=== PATIENT | male | born 1945 | race Caucasian/White ===

== ENCOUNTER 2016-07-08 10:07 | Inpatient (IN) | payer MEDICARE, MEDICAID ==
[~2016-07-08] VITALS: Ht 170.2 cm; Wt 84.9 kg
[~2016-07-08 10:07] MED LIST: ALBU18HF IH; AMLO5TAB4 PO; AZIT500T77 PO; CEPH-368 PO; CLON0.1T PO; CLON0.1T12 PO; DOXY100T PO; FOLI-17 PO; GUAI5SYR PO; GUAI600T22 PO; IRBE1TAB13 PO; LEVO750T26 PO; LORA-445 PO; LORA-446 PO; METO25TA35 PO; MULT-26 PO; MULT-750 PO; PRED10TA PO; RISP0.5T18 PO; THIA100T6 PO; TRAZ50TA18 PO
[2016-07-08] MEDS ORDERED: SODIUM CHLORIDE 0.9% 1,000ML IVBOLUS ONE ×2 (11:00→12:30)
[2016-07-08] MEDS ORDERED: SODIUM CHLORIDE FLUSH 10ML SYR IVF ONE (11:00)
[2016-07-08 11:15] LABS: BLOOD UREA NITROGEN 31 mg/dL (7-18)
[2016-07-08 11:23] LABS: IS PT STATUS REG ER OR PRE ER? YES
[2016-07-08] MEDS ORDERED: SODIUM CHLORIDE 0.9% 1,000 ML IV STA (12:35)
[2016-07-08] MEDS ORDERED: AMLO10TA2 PO (12:36)
[2016-07-08] MEDS ORDERED: BUME0.5T PO (12:36)
[2016-07-08] MEDS ORDERED: CARV-39 PO (12:36)
[2016-07-08] MEDS ORDERED: SPIR25TA3 PO (12:36)
[2016-07-08] MEDS ORDERED: ALLO300T PO (12:36)
[2016-07-08] MEDS ORDERED: SODIUM CHLORIDE 0.9% 1,000 ML IV ONE (12:41)
[2016-07-08] MEDS ORDERED: OMNIPAQUE 350 MG/ML, 100ML BOTTLE ONE (13:33)
[2016-07-08] MEDS ORDERED: D5%-0.45% NACL 1,000 ML IV ONE (14:06)
[2016-07-08] MEDS ORDERED: SODIUM CHLORIDE FLUSH 10ML SYR IVF PRN (14:30)
[2016-07-08] MEDS ORDERED: ACETAMINOPHEN 325 MG TABLET PO PRN (16:30)
[2016-07-08] MEDS ORDERED: OXYcodone IR 5MG TABLET PO PRN (16:30)
[2016-07-08] MEDS ORDERED: POLYETHYLENE GLYCOL 17 GM PACKET PO PRN (16:30)
[2016-07-08] MEDS ORDERED: ONDANSETRON ODT 4 MG PO PRN (16:30)
[2016-07-08] MEDS: NS + 20MEQ KCL 1,000 ML IV SCH (18:24)
[2016-07-08] MEDS: CARVEDILOL 25 MG TABLET PO SCH (18:24)
[2016-07-08 18:27] VITALS: BP 117/81
[2016-07-08 18:55] VITALS: BP 98/59
[2016-07-08] MEDS: LACTULOSE 10 GM/15 ML UDC PO SCH (22:13)
[2016-07-08] MEDS: RISPERIDONE 0.5 MG TABLET PO SCH (22:13)
[2016-07-08 22:17] VITALS: BP 105/72
[2016-07-09 01:24] VITALS: BP 100/64
[2016-07-09] MEDS: NS + 20MEQ KCL 1,000 ML IV SCH ×2 (03:15→16:12)
[2016-07-09 05:06] LABS: BLOOD UREA NITROGEN 23 mg/dL (7-18)
[2016-07-09 05:10] LABS: ASPARTATE AMINO TRANSFERASE 20 U/L (15-37)
[2016-07-09] MEDS: LEVOTHYROXINE 100 MCG TABLET PO SCH (06:08)
[2016-07-09] MEDS: CARVEDILOL 25 MG TABLET PO SCH ×2 (06:08→17:43)
[2016-07-09 06:09] VITALS: BP 114/67
[2016-07-09 07:53] VITALS: BP 102/60
[2016-07-09] MEDS: ALLOPURINOL 300 MG TABLET PO SCH (09:38)
[2016-07-09] MEDS: LACTULOSE 10 GM/15 ML UDC PO SCH ×2 (09:39→20:12)
[2016-07-09] MEDS: BUMETANIDE 1 MG TABLET PO SCH (09:39)
[2016-07-09] MEDS: RISPERIDONE 0.5 MG TABLET PO SCH ×2 (09:39→20:12)
[2016-07-09] MEDS: LORazepam 1MG TABLET PO PRN (10:58)
[2016-07-09 13:56] VITALS: BP 101/61
[2016-07-09] MEDS: CEFTRIAXONE 1,000 MG in DEXTROSE 5% 50 ML IV SCH (14:59)
[2016-07-09 18:19] VITALS: BP 100/63
[2016-07-09] MEDS: TRAZODONE 50MG TABLET PO PRN (20:12)
[2016-07-10] MEDS: NS + 20MEQ KCL 1,000 ML IV SCH (01:48)
[2016-07-10 04:07] VITALS: BP 110/68
[2016-07-10] MEDS: LEVOTHYROXINE 100 MCG TABLET PO SCH (05:37)
[2016-07-10] MEDS: CARVEDILOL 25 MG TABLET PO SCH ×2 (05:37→17:26)
[2016-07-10 07:52] VITALS: BP 105/66
[2016-07-10] MEDS: LORazepam 1MG TABLET PO PRN (08:18)
[2016-07-10] MEDS: LACTULOSE 10 GM/15 ML UDC PO SCH ×3 (08:18→20:04)
[2016-07-10] MEDS: ALLOPURINOL 300 MG TABLET PO SCH (08:19)
[2016-07-10] MEDS: BUMETANIDE 1 MG TABLET PO SCH (08:19)
[2016-07-10] MEDS: RISPERIDONE 0.5 MG TABLET PO SCH ×2 (08:19→20:04)
[2016-07-10 13:05] VITALS: BP 102/64
[2016-07-10] MEDS: CEFTRIAXONE 1,000 MG in DEXTROSE 5% 50 ML IV SCH (14:35)
[2016-07-10] MEDS ORDERED: NS + 20MEQ KCL 1,000 ML IV SCH (16:28)
[2016-07-10 19:54] VITALS: BP 106/63
[2016-07-10] MEDS: TRAZODONE 50MG TABLET PO PRN (20:03)
[2016-07-11 01:18] VITALS: BP 116/71
[2016-07-11] MEDS: LEVOTHYROXINE 100 MCG TABLET PO SCH (05:35)
[2016-07-11] MEDS: CARVEDILOL 25 MG TABLET PO SCH ×2 (05:35→17:41)
[2016-07-11 05:38] LABS: BLOOD UREA NITROGEN 15 mg/dL (7-18)
[2016-07-11 05:42] LABS: ASPARTATE AMINO TRANSFERASE 17 U/L (15-37)
[2016-07-11 07:47] VITALS: BP 101/66
[2016-07-11] MEDS: ALLOPURINOL 300 MG TABLET PO SCH (09:44)
[2016-07-11] MEDS: LACTULOSE 10 GM/15 ML UDC PO SCH ×2 (09:44→20:52)
[2016-07-11] MEDS: RISPERIDONE 0.5 MG TABLET PO SCH ×2 (09:44→20:52)
[2016-07-11] MEDS: CEFTRIAXONE 1,000 MG in DEXTROSE 5% 50 ML IV SCH (13:56)
[2016-07-11 15:00] VITALS: BP 111/71
[2016-07-11] MEDS: LORazepam 1MG TABLET PO PRN (17:47)
[2016-07-11 19:54] VITALS: BP 108/67
[2016-07-12 02:00] VITALS: BP 119/64
[2016-07-12] MEDS: LEVOTHYROXINE 100 MCG TABLET PO SCH (05:23)
[2016-07-12] MEDS: CARVEDILOL 25 MG TABLET PO SCH (05:23)
[2016-07-12 06:33] VITALS: BP 104/66
[2016-07-12] MEDS: LACTULOSE 10 GM/15 ML UDC PO SCH (08:18)
[2016-07-12] MEDS: ALLOPURINOL 300 MG TABLET PO SCH (08:19)
[2016-07-12] MEDS: RISPERIDONE 0.5 MG TABLET PO SCH (08:19)
[2016-07-12] MEDS: LORazepam 1MG TABLET PO PRN (08:19)
[2016-07-12] MEDS ORDERED: RISP0.5T18 PO (11:27)
[2016-07-12] MEDS ORDERED: LEVO100T PO (11:27)
[2016-07-12] MEDS ORDERED: TRAM50TA2 PO (11:27)
[2016-07-12 13:20] VITALS: BP 110/69
[2016-07-12] MEDS: CEFTRIAXONE 1,000 MG in DEXTROSE 5% 50 ML IV SCH (14:00)
== END 2016-07-12 15:30 | disposition home health service (06) | DRG 314 ==
LOC: ED 13:53 → EDIP 13:54 → ED 14:12 → 4WST 17:34
PROVIDERS: ADMIT Internal Medicine; ATTEND Internal Medicine
DX: I95.0 Idiopathic hypotension (principal); J18.9 Pneumonia, unspecified organism; L03.116 Cellulitis of left lower limb; L03.115 Cellulitis of right lower limb; E86.0 Dehydration; I10 Essential (primary) hypertension; E03.9 Hypothyroidism, unspecified; E86.1 Hypovolemia; F10.20 Alcohol dependence, uncomplicated; J43.9 Emphysema, unspecified; F41.9 Anxiety disorder, unspecified; F03.90 Unspecified dementia, unspecified severity, without behavioral disturbance, psychotic disturbance, mood disturbance, and anxiety; I27.2 Other secondary pulmonary hypertension; I27.81 Cor pulmonale (chronic); I89.0 Lymphedema, not elsewhere classified; Z87.891 Personal history of nicotine dependence; I25.2 Old myocardial infarction
CPT/HCPCS: 36415; 71010; 71275; 74150; 74175; 80048; 80053; 81003; 82040; 84484; 85025; 85379; 93005; 93306; 93970; 96361; 96365; 96366; J0696; J3480; Q9967; J7030

== ENCOUNTER 2017-11-01 20:14 | Inpatient (IN) | payer MEDICARE, MEDICAID ==
[~2017-11-01] VITALS: Ht 180.3 cm; Wt 71.2 kg
[~2017-11-01 20:14] MED LIST changes: +ALLO300T PO; +AMLO10TA6 PO; +ASPI-621 PO; +AZIT500T5 PO; -AZIT500T77 PO; +BUME0.5T PO; +CARV-39 PO; -GUAI600T22 PO; +GUAI600T31 PO; +LEVO100T PO; -RISP0.5T18 PO; +RISP0.5T24 PO; +SPIR25TA5 PO; -THIA100T6 PO; +THIA100T67 PO; +TRAM50TA2 PO; +TRAZ-136 PO; -TRAZ50TA18 PO
[2017-11-01] MEDS ORDERED: SODIUM CHLORIDE FLUSH 10ML SYR IVF ONE (21:30)
[2017-11-01 21:41] LABS: BASOPHILS # (AUTO) 0.01 x10^3/uL (0-0.1); BASOPHILS % (AUTO) 0 % (0-1); EOSINOPHILS # (AUTO) 0.23 x10^3/uL (0-0.4); EOSINOPHILS % (AUTO) 2 % (1-7); LYMPHOCYTES # (AUTO) 1.24 x10^3/uL (1-3.4); LYMPHOCYTES % (AUTO) 9 % (22-44); MD NO; MEAN CORPUSCULAR HEMOGLOBIN 32.6 pg (27.5-34.5); MEAN CORPUSCULAR VOLUME 95.8 fL (81-97); MEAN PLATELET VOLUME 11.4 fL (7.4-10.4); MONOCYTES # (AUTO) 1.05 x10^3/uL (0.2-0.8); MONOCYTES % (AUTO) 8 % (2-9); NEUTROPHILS # (AUTO) 10.63 x10^3/uL (1.8-6.8); NEUTROPHILS % (AUTO) 81 % (42-75); PLATELET COUNT 158 x10^3/uL (130-400); RED BLOOD COUNT 3.41 x10^6/uL (4.38-5.82); RED CELL DISTRIBUTION WIDTH 14.3 % (9.4-14.8)
[2017-11-01 21:50] LABS: INTERNATIONAL NORMALIZED RATIO 1.02 (0.93-1.1); PROTHROMBIN TIME 10.6 Seconds (9.6-11.5)
[2017-11-01 21:51] LABS: ALANINE AMINOTRANSFERASE 12 U/L (12-78); ALBUMIN 3.6 g/dL (3.4-5.0); ANION GAP 11 mmol/L (5-15); CHLORIDE 98 mmol/L (98-107); CREATININE 4.68 mg/dL (0.7-1.3)
[2017-11-01 21:56] LABS: ALKALINE PHOSPHATASE 55 U/L (45-117); BILIRUBIN,TOTAL 0.7 mg/dL (0.2-1.0); TOTAL PROTEIN 7.2 g/dL (6.4-8.2); TROPONIN I 0.033 ng/mL (0.000-0.045)
[2017-11-01] MEDS ORDERED: CLOP75TA52 PO (21:56)
[2017-11-01] MEDS ORDERED: SPIR25TA5 PO (21:56)
[2017-11-01 21:57] LABS: MICROSCOPIC NOT IND
[2017-11-01] MEDS ORDERED: LOSA25TA6 PO (21:57)
[2017-11-01 22:00] LABS: CULTURE INDICATED? NO
[2017-11-01] MEDS ORDERED: SODIUM CHLORIDE 0.9% 1,000ML IVBOLUS ONE (22:00)
[2017-11-02] MEDS ORDERED: GLUCAGON 1 MG IVPush ONE
[2017-11-02] MEDS ORDERED: SODIUM CHLORIDE 0.9% 1,000ML IVBOLUS ONE (00:30)
[2017-11-02] MEDS ORDERED: SODIUM CHLORIDE 0.9% 1,000 ML IV ONE (01:50)
[2017-11-02] MEDS ORDERED: NOREPINEPHRINE 4 MG in SODIUM CHLORIDE 0.9% 246 ML IV PRN ×2 (02:00→04:00)
[2017-11-02] MEDS ORDERED: SODIUM CHLORIDE FLUSH 10ML SYR IVF PRN (02:00)
[2017-11-02] MEDS ORDERED: BISACODYL 10 MG SUPP PR PRN (03:30)
[2017-11-02] MEDS ORDERED: ONDANSETRON 2MG/ML, 2ML IVPush PRN (03:30)
[2017-11-02] MEDS ORDERED: ACETAMINOPHEN 325 MG TABLET PO PRN (03:30)
[2017-11-02] MEDS ORDERED: LORazepam 1MG TABLET PO PRN (03:30)
[2017-11-02] MEDS ORDERED: PHARMACY MAY ADJ FOR RENAL FX MC PRN (04:00)
[2017-11-02] MEDS: HEPARIN 5,000 UNITS/ML, 1ML SQ SCH ×3 (04:06→20:22)
[2017-11-02] MEDS: SODIUM CHLORIDE 0.9% 1,000 ML IV SCH ×4 (04:06→20:31)
[2017-11-02] MEDS ORDERED: ALBUTEROL SULFATE 2.5 MG/3 ML NPPB PRN (04:30)
[2017-11-02 05:13] VITALS: BP 104/58
[2017-11-02 05:14] LABS: CHLORIDE,URINE RANDOM 95 mmol/L; POTASSIUM,URINE RANDOM 13 mmol/L; SODIUM,URINE RANDOM 93 mmol/L
[2017-11-02] MEDS ORDERED: SODIUM CHLORIDE 0.9%, 500ML IVBOLUS ONE (05:30)
[2017-11-02 06:03] LABS: BASOPHILS # (AUTO) 0.06 x10^3/uL (0-0.1); BASOPHILS % (AUTO) 1 % (0-1); EOSINOPHILS # (AUTO) 0.28 x10^3/uL (0-0.4); EOSINOPHILS % (AUTO) 2 % (1-7); LYMPHOCYTES # (AUTO) 1.36 x10^3/uL (1-3.4); LYMPHOCYTES % (AUTO) 12 % (22-44); MD NO; MEAN CORPUSCULAR HEMOGLOBIN 32.2 pg (27.5-34.5); MEAN CORPUSCULAR HGB CONC 33.8 g/dL (33.2-36.2); MEAN CORPUSCULAR VOLUME 95.4 fL (81-97); MONOCYTES # (AUTO) 1.02 x10^3/uL (0.2-0.8); MONOCYTES % (AUTO) 9 % (2-9); NEUTROPHILS # (AUTO) 8.91 x10^3/uL (1.8-6.8); NEUTROPHILS % (AUTO) 77 % (42-75); PLATELET COUNT 164 x10^3/uL (130-400); RED CELL DISTRIBUTION WIDTH 14.2 % (9.4-14.8)
[2017-11-02 06:15] LABS: ALBUMIN 3.4 g/dL (3.4-5.0); ANION GAP 12 mmol/L (5-15); CALCIUM 8.4 mg/dL (8.5-10.1); CHLORIDE 103 mmol/L (98-107)
[2017-11-02 06:19] LABS: ALANINE AMINOTRANSFERASE 14 U/L (12-78); ALKALINE PHOSPHATASE 51 U/L (45-117); BILIRUBIN,TOTAL 0.8 mg/dL (0.2-1.0); CREATININE 3.49 mg/dL (0.7-1.3); TOTAL PROTEIN 6.7 g/dL (6.4-8.2)
[2017-11-02] MEDS: ASPIRIN 81 MG TABLET EC PO SCH (06:49)
[2017-11-02] MEDS: LEVOTHYROXINE 100 MCG TABLET PO SCH (06:49)
[2017-11-02] MEDS: CLOPIDOGREL 75 MG TABLET PO SCH (08:13)
[2017-11-02] MEDS: RISPERIDONE 0.5 MG TABLET PO SCH ×2 (08:13→20:22)
[2017-11-02] MEDS ORDERED: HYDROCORTISONE 100 MG INJ. IV SCH (09:30)
[2017-11-02] MEDS: NOREPINEPHRINE 8 MG in SODIUM CHLORIDE 0.9% 242 ML IV PRN ×2 (12:15→18:51)
[2017-11-03] MEDS: NOREPINEPHRINE 8 MG in SODIUM CHLORIDE 0.9% 242 ML IV PRN ×3 (00:16→20:15)
[2017-11-03] MEDS: SODIUM CHLORIDE 0.9% 1,000 ML IV SCH (03:23)
[2017-11-03 04:00] VITALS: BP 100/51
[2017-11-03] MEDS: HEPARIN 5,000 UNITS/ML, 1ML SQ SCH ×3 (04:39→20:16)
[2017-11-03 04:44] LABS: BASOPHILS # (AUTO) 0.08 x10^3/uL (0-0.1); BASOPHILS % (AUTO) 1 % (0-1); EOSINOPHILS # (AUTO) 0.48 x10^3/uL (0-0.4); EOSINOPHILS % (AUTO) 5 % (1-7); LYMPHOCYTES # (AUTO) 1.11 x10^3/uL (1-3.4); LYMPHOCYTES % (AUTO) 12 % (22-44); MD NO; MEAN CORPUSCULAR HEMOGLOBIN 31.7 pg (27.5-34.5); MEAN CORPUSCULAR HGB CONC 33.2 g/dL (33.2-36.2); MEAN CORPUSCULAR VOLUME 95.4 fL (81-97); MONOCYTES % (AUTO) 9 % (2-9); NEUTROPHILS # (AUTO) 7.11 x10^3/uL (1.8-6.8); NEUTROPHILS % (AUTO) 73 % (42-75); PLATELET COUNT 175 x10^3/uL (130-400); RED BLOOD COUNT 3.32 x10^6/uL (4.38-5.82); RED CELL DISTRIBUTION WIDTH 14.2 % (9.4-14.8)
[2017-11-03 04:56] LABS: CHLORIDE 110 mmol/L (98-107)
[2017-11-03 05:16] LABS: ANION GAP 8 mmol/L (5-15); CALCIUM 8.7 mg/dL (8.5-10.1); CREATININE 1.94 mg/dL (0.7-1.3); THYROID STIMULATING HORMONE 0.404 mIU/L (0.358-3.740)
[2017-11-03] MEDS: LEVOTHYROXINE 100 MCG TABLET PO SCH (06:33)
[2017-11-03] MEDS: ASPIRIN 81 MG TABLET EC PO SCH (06:33)
[2017-11-03] MEDS: CLOPIDOGREL 75 MG TABLET PO SCH (08:13)
[2017-11-03] MEDS: RISPERIDONE 0.5 MG TABLET PO SCH ×2 (08:13→20:16)
[2017-11-03] MEDS: VASOPRESSIN 100 UNIT in SODIUM CHLORIDE 0.9% 495 ML IV PRN (08:45)
[2017-11-03] MEDS ORDERED: ONDANSETRON ODT 4 MG ONE (10:04)
[2017-11-03] MEDS: CEFTRIAXONE 2 GM in SODIUM CHLORIDE 0.9% 50 ML IV SCH (11:57)
[2017-11-03] MEDS ORDERED: ONDANSETRON ODT 4 MG PO PRN (12:00)
[2017-11-03] MEDS: METRONIDAZOLE PMX 500MG/100ML 100 ML IV SCH ×2 (13:01→20:16)
[2017-11-03] MEDS ORDERED: DOCUSATE 100 MG CAPSULE PO PRN (14:30)
[2017-11-03] MEDS ORDERED: LACTULOSE 20 GM/30 ML UDC PO PRN (14:30)
[2017-11-03] MEDS: SENNA/DOCUSATE TABLET PO SCH (20:16)
[2017-11-04] MEDS: HEPARIN 5,000 UNITS/ML, 1ML SQ SCH ×3 (04:10→20:55)
[2017-11-04 04:49] LABS: BASOPHILS # (AUTO) 0.07 x10^3/uL (0-0.1); BASOPHILS % (AUTO) 1 % (0-1); EOSINOPHILS # (AUTO) 0.08 x10^3/uL (0-0.4); EOSINOPHILS % (AUTO) 1 % (1-7); LYMPHOCYTES # (AUTO) 0.99 x10^3/uL (1-3.4); LYMPHOCYTES % (AUTO) 11 % (22-44); MD NO; MEAN CORPUSCULAR HEMOGLOBIN 31.7 pg (27.5-34.5); MEAN PLATELET VOLUME 10.5 fL (7.4-10.4); MONOCYTES # (AUTO) 0.65 x10^3/uL (0.2-0.8); MONOCYTES % (AUTO) 7 % (2-9); NEUTROPHILS # (AUTO) 7.05 x10^3/uL (1.8-6.8); NEUTROPHILS % (AUTO) 80 % (42-75); PLATELET COUNT 129 x10^3/uL (130-400); RED BLOOD COUNT 2.54 x10^6/uL (4.38-5.82); RED CELL DISTRIBUTION WIDTH 14.2 % (9.4-14.8)
[2017-11-04 04:55] LABS: ALBUMIN 3.2 g/dL (3.4-5.0); ANION GAP 4 mmol/L (5-15); CALCIUM 8.9 mg/dL (8.5-10.1); CHLORIDE 108 mmol/L (98-107)
[2017-11-04] MEDS: METRONIDAZOLE PMX 500MG/100ML 100 ML IV SCH ×2 (04:57→12:33)
[2017-11-04 05:01] LABS: ALANINE AMINOTRANSFERASE 13 U/L (12-78); ALKALINE PHOSPHATASE 54 U/L (45-117); BILIRUBIN,TOTAL 0.4 mg/dL (0.2-1.0); CREATININE 1.29 mg/dL (0.7-1.3); TOTAL PROTEIN 6.7 g/dL (6.4-8.2)
[2017-11-04 05:05] VITALS: BP 104/55
[2017-11-04] MEDS: ASPIRIN 81 MG TABLET EC PO SCH (05:34)
[2017-11-04] MEDS: LEVOTHYROXINE 100 MCG TABLET PO SCH (05:34)
[2017-11-04] MEDS ORDERED: MAGNESIUM SULFATE PMX 2GM/50ML 50 ML IV ONE (07:00)
[2017-11-04] MEDS: CLOPIDOGREL 75 MG TABLET PO SCH (08:13)
[2017-11-04] MEDS: RISPERIDONE 0.5 MG TABLET PO SCH ×2 (08:13→20:55)
[2017-11-04] MEDS: CEFTRIAXONE 2 GM in SODIUM CHLORIDE 0.9% 50 ML IV SCH (11:28)
[2017-11-04] MEDS: SENNA/DOCUSATE TABLET PO SCH (20:55)
[2017-11-05 04:00] VITALS: BP 90/48
[2017-11-05 04:05] LABS: BASOPHILS # (AUTO) 0.01 x10^3/uL (0-0.1); BASOPHILS % (AUTO) 0 % (0-1); EOSINOPHILS # (AUTO) 0.28 x10^3/uL (0-0.4); EOSINOPHILS % (AUTO) 2 % (1-7); LYMPHOCYTES % (AUTO) 14 % (22-44); MD NO; MEAN CORPUSCULAR HEMOGLOBIN 32.3 pg (27.5-34.5); MEAN CORPUSCULAR HGB CONC 33.2 g/dL (33.2-36.2); MEAN CORPUSCULAR VOLUME 97.2 fL (81-97); MEAN PLATELET VOLUME 10.8 fL (7.4-10.4); MONOCYTES # (AUTO) 0.97 x10^3/uL (0.2-0.8); MONOCYTES % (AUTO) 8 % (2-9); NEUTROPHILS # (AUTO) 8.75 x10^3/uL (1.8-6.8); NEUTROPHILS % (AUTO) 75 % (42-75); PLATELET COUNT 175 x10^3/uL (130-400); RED BLOOD COUNT 3.18 x10^6/uL (4.38-5.82); RED CELL DISTRIBUTION WIDTH 14.9 % (9.4-14.8)
[2017-11-05 04:06] LABS: ALANINE AMINOTRANSFERASE 13 U/L (12-78); ALBUMIN 3.1 g/dL (3.4-5.0); ANION GAP 5 mmol/L (5-15); CALCIUM 9.4 mg/dL (8.5-10.1); CHLORIDE 106 mmol/L (98-107); CREATININE 1.16 mg/dL (0.7-1.3)
[2017-11-05 04:08] LABS: ALKALINE PHOSPHATASE 58 U/L (45-117); BILIRUBIN,TOTAL 0.3 mg/dL (0.2-1.0); TOTAL PROTEIN 6.6 g/dL (6.4-8.2)
[2017-11-05] MEDS: LEVOTHYROXINE 100 MCG TABLET PO SCH (04:40)
[2017-11-05] MEDS: ASPIRIN 81 MG TABLET EC PO SCH (04:40)
[2017-11-05] MEDS: HEPARIN 5,000 UNITS/ML, 1ML SQ SCH (04:40)
[2017-11-05] MEDS: RISPERIDONE 0.5 MG TABLET PO SCH ×2 (08:27→21:00)
[2017-11-05] MEDS: CLOPIDOGREL 75 MG TABLET PO SCH (08:27)
[2017-11-05] MEDS ORDERED: FILTER 0.22 MICRON IV SCH (09:30)
[2017-11-05] MEDS ORDERED: HEPARIN 5,000 UNITS/ML, 1ML IV ONE (09:30)
[2017-11-05] MEDS ORDERED: AMIODARONE 150 MG in DEXTROSE 5% 100 ML IV ONE (09:30)
[2017-11-05] MEDS: HEPARIN 25,000 UNITS/500ML PMX 500 ML IV PRN (09:44)
[2017-11-05 09:48] LABS: TROPONIN I 0.068 ng/mL (0.000-0.045)
[2017-11-05] MEDS ORDERED: AMIODARONE 900 MG in DEXTROSE 5% 482 ML IV PRN (10:00)
[2017-11-05] MEDS: TAMSULOSIN 0.4 MG CAP.ER.24H PO SCH (12:57)
[2017-11-05 16:53] LABS: TROPONIN I 0.069 ng/mL (0.000-0.045)
[2017-11-05] MEDS: VASOPRESSIN 100 UNIT in SODIUM CHLORIDE 0.9% 495 ML IV PRN (20:32)
[2017-11-05] MEDS: SENNA/DOCUSATE TABLET PO SCH (21:00)
[2017-11-05 22:39] LABS: TROPONIN I 0.073 ng/mL (0.000-0.045)
[2017-11-06 04:00] VITALS: BP 105/50
[2017-11-06 05:10] LABS: BASOPHILS # (AUTO) 0.02 x10^3/uL (0-0.1); BASOPHILS % (AUTO) 0 % (0-1); EOSINOPHILS # (AUTO) 0.27 x10^3/uL (0-0.4); EOSINOPHILS % (AUTO) 3 % (1-7); LYMPHOCYTES # (AUTO) 1.28 x10^3/uL (1-3.4); LYMPHOCYTES % (AUTO) 13 % (22-44); MD NO; MEAN CORPUSCULAR HGB CONC 33.9 g/dL (33.2-36.2); MEAN CORPUSCULAR VOLUME 97.1 fL (81-97); MEAN PLATELET VOLUME 10.8 fL (7.4-10.4); MONOCYTES # (AUTO) 0.95 x10^3/uL (0.2-0.8); MONOCYTES % (AUTO) 9 % (2-9); NEUTROPHILS # (AUTO) 7.55 x10^3/uL (1.8-6.8); NEUTROPHILS % (AUTO) 75 % (42-75); PLATELET COUNT 167 x10^3/uL (130-400); RED BLOOD COUNT 2.92 x10^6/uL (4.38-5.82); RED CELL DISTRIBUTION WIDTH 15.2 % (9.4-14.8)
[2017-11-06 05:19] LABS: ALANINE AMINOTRANSFERASE 18 U/L (12-78); ANION GAP 5 mmol/L (5-15); CALCIUM 9.3 mg/dL (8.5-10.1); CHLORIDE 105 mmol/L (98-107); CREATININE 0.98 mg/dL (0.7-1.3)
[2017-11-06 05:22] LABS: ALKALINE PHOSPHATASE 50 U/L (45-117); BILIRUBIN,TOTAL 0.3 mg/dL (0.2-1.0); TOTAL PROTEIN 6.2 g/dL (6.4-8.2)
[2017-11-06] MEDS: ASPIRIN 81 MG TABLET EC PO SCH (05:42)
[2017-11-06] MEDS: LEVOTHYROXINE 100 MCG TABLET PO SCH (05:42)
[2017-11-06] MEDS: TAMSULOSIN 0.4 MG CAP.ER.24H PO SCH (09:33)
[2017-11-06] MEDS: RISPERIDONE 0.5 MG TABLET PO SCH ×2 (09:33→20:55)
[2017-11-06] MEDS: CLOPIDOGREL 75 MG TABLET PO SCH (09:33)
[2017-11-06] MEDS: HEPARIN 25,000 UNITS/500ML PMX 500 ML IV PRN (18:14)
[2017-11-07 04:00] VITALS: BP 92/50
[2017-11-07] MEDS: LEVOTHYROXINE 100 MCG TABLET PO SCH (05:31)
[2017-11-07] MEDS: ASPIRIN 81 MG TABLET EC PO SCH (05:31)
[2017-11-07] MEDS: HEPARIN 5,000 UNITS/ML, 1ML IV PRN ×2 (05:42→19:48)
[2017-11-07] MEDS: RISPERIDONE 0.5 MG TABLET PO SCH ×2 (08:21→20:37)
[2017-11-07] MEDS: TAMSULOSIN 0.4 MG CAP.ER.24H PO SCH (08:21)
[2017-11-07] MEDS: CLOPIDOGREL 75 MG TABLET PO SCH (08:21)
[2017-11-07 12:45] VITALS: BP 115/75
[2017-11-07 19:36] VITALS: BP 116/71
[2017-11-08] MEDS: HEPARIN 25,000 UNITS/500ML PMX 500 ML IV PRN (00:21)
[2017-11-08 02:00] LABS: ABSOLUTE RETICS # 0.055 x10^6/uL (0.5-1.5); BASOPHILS # (AUTO) 0.06 x10^3/uL (0-0.1); BASOPHILS % (AUTO) 1 % (0-1); EOSINOPHILS # (AUTO) 0.44 x10^3/uL (0-0.4); EOSINOPHILS % (AUTO) 4 % (1-7); LYMPHOCYTES # (AUTO) 2.08 x10^3/uL (1-3.4); LYMPHOCYTES % (AUTO) 17 % (22-44); MD NO; MEAN CORPUSCULAR HEMOGLOBIN 31.8 pg (27.5-34.5); MEAN CORPUSCULAR VOLUME 96.4 fL (81-97); MEAN PLATELET VOLUME 9.6 fL (7.4-10.4); MONOCYTES # (AUTO) 1.09 x10^3/uL (0.2-0.8); MONOCYTES % (AUTO) 9 % (2-9); NEUTROPHILS # (AUTO) 8.66 x10^3/uL (1.8-6.8); NEUTROPHILS % (AUTO) 70 % (42-75); PLATELET COUNT 200 x10^3/uL (130-400); RED BLOOD COUNT 3.22 x10^6/uL (4.38-5.82); RED BLOOD COUNT 3.25 x10^6/uL (4.38-5.82); RED CELL DISTRIBUTION WIDTH 14.7 % (9.4-14.8); RETICULOCYTE COUNT % 1.71 % (0.5-1.5)
[2017-11-08 02:15] VITALS: BP 135/79
[2017-11-08 04:00] VITALS: BP 105/77
[2017-11-08] MEDS: ASPIRIN 81 MG TABLET EC PO SCH (05:59)
[2017-11-08] MEDS: LEVOTHYROXINE 100 MCG TABLET PO SCH (06:00)
[2017-11-08 07:25] VITALS: BP 105/71
[2017-11-08] MEDS: CLOPIDOGREL 75 MG TABLET PO SCH (09:00)
[2017-11-08] MEDS: RISPERIDONE 0.5 MG TABLET PO SCH ×2 (09:01→20:59)
[2017-11-08] MEDS: TAMSULOSIN 0.4 MG CAP.ER.24H PO SCH (09:01)
[2017-11-08 13:19] VITALS: BP 101/69
[2017-11-08] MEDS ORDERED: SODIUM CHLORIDE 0.9% 1,000 ML IV ONE ×2 (14:30→19:47)
[2017-11-08 19:06] VITALS: BP 111/75
[2017-11-09] VITALS (11 sets, daily range): BP systolic 89–135; BP diastolic 51–84
[2017-11-09] MEDS: HEPARIN 25,000 UNITS/500ML PMX 500 ML IV PRN (02:21)
[2017-11-09] MEDS: LEVOTHYROXINE 100 MCG TABLET PO SCH (05:30)
[2017-11-09] MEDS: ASPIRIN 81 MG TABLET EC PO SCH (05:30)
[2017-11-09 05:56] LABS: BASOPHILS # (AUTO) 0.11 x10^3/uL (0-0.1); BASOPHILS % (AUTO) 1 % (0-1); EOSINOPHILS # (AUTO) 0.36 x10^3/uL (0-0.4); EOSINOPHILS % (AUTO) 4 % (1-7); LYMPHOCYTES # (AUTO) 1.28 x10^3/uL (1-3.4); LYMPHOCYTES % (AUTO) 13 % (22-44); MD NO; MEAN CORPUSCULAR HEMOGLOBIN 31.8 pg (27.5-34.5); MEAN CORPUSCULAR HGB CONC 32.9 g/dL (33.2-36.2); MEAN CORPUSCULAR VOLUME 96.5 fL (81-97); MEAN PLATELET VOLUME 9.8 fL (7.4-10.4); MONOCYTES # (AUTO) 0.92 x10^3/uL (0.2-0.8); MONOCYTES % (AUTO) 9 % (2-9); NEUTROPHILS # (AUTO) 7.63 x10^3/uL (1.8-6.8); NEUTROPHILS % (AUTO) 74 % (42-75); PLATELET COUNT 208 x10^3/uL (130-400); RED BLOOD COUNT 3.14 x10^6/uL (4.38-5.82); RED CELL DISTRIBUTION WIDTH 14.9 % (9.4-14.8)
[2017-11-09 06:07] LABS: ANION GAP 6 mmol/L (5-15); CALCIUM 8.4 mg/dL (8.5-10.1); CHLORIDE 106 mmol/L (98-107)
[2017-11-09 06:10] LABS: CREATININE 0.85 mg/dL (0.7-1.3)
[2017-11-09] MEDS: HEPARIN 5,000 UNITS/ML, 1ML IV PRN (06:33)
[2017-11-09] MEDS: CLOPIDOGREL 75 MG TABLET PO SCH (09:55)
[2017-11-09] MEDS: RISPERIDONE 0.5 MG TABLET PO SCH ×2 (09:55→20:36)
[2017-11-09] MEDS ORDERED: SODIUM CHLORIDE 0.9% 1,000 ML IV SCH (12:00)
[2017-11-09] MEDS: TAMSULOSIN 0.4 MG CAP.ER.24H PO SCH (12:36)
[2017-11-09] MEDS: APIXABAN 5 MG TABLET PO SCH (18:14)
[2017-11-09] MEDS: METOPROLOL TARTRATE 25 MG TABLET PO SCH (18:17)
[2017-11-10] VITALS (13 sets, daily range): BP systolic 78–145; BP diastolic 54–78
[2017-11-10] MEDS: ASPIRIN 81 MG TABLET EC PO SCH (06:09)
[2017-11-10] MEDS: LEVOTHYROXINE 100 MCG TABLET PO SCH (06:10)
[2017-11-10] MEDS: METOPROLOL TARTRATE 25 MG TABLET PO SCH (06:10)
[2017-11-10 06:19] LABS: ALBUMIN 3.2 g/dL (3.4-5.0); ANION GAP 7 mmol/L (5-15); CALCIUM 8.9 mg/dL (8.5-10.1); CHLORIDE 109 mmol/L (98-107)
[2017-11-10] MEDS ORDERED: SODIUM CHLORIDE 0.9% 1,000 ML IV SCH ×2 (08:30→12:00)
[2017-11-10] MEDS: APIXABAN 5 MG TABLET PO SCH ×2 (09:57→20:31)
[2017-11-10] MEDS: RISPERIDONE 0.5 MG TABLET PO SCH ×2 (09:58→20:31)
[2017-11-10] MEDS: TAMSULOSIN 0.4 MG CAP.ER.24H PO SCH (13:16)
[2017-11-10] MEDS: METOPROLOL TARTRATE 50 MG TABLET PO SCH (18:27)
[2017-11-11] VITALS (13 sets, daily range): BP systolic 81–122; BP diastolic 51–82
[2017-11-11] MEDS: METOPROLOL TARTRATE 50 MG TABLET PO SCH ×2 (05:45→17:07)
[2017-11-11] MEDS: LEVOTHYROXINE 100 MCG TABLET PO SCH (05:45)
[2017-11-11] MEDS: ASPIRIN 81 MG TABLET EC PO SCH (05:45)
[2017-11-11] MEDS: RISPERIDONE 0.5 MG TABLET PO SCH ×2 (08:27→20:25)
[2017-11-11] MEDS: APIXABAN 5 MG TABLET PO SCH ×2 (08:27→20:25)
[2017-11-11] MEDS: TAMSULOSIN 0.4 MG CAP.ER.24H PO SCH (12:19)
[2017-11-11] MEDS ORDERED: RISPERIDONE 1 MG TABLET ONE (20:18)
[2017-11-12] VITALS (12 sets, daily range): BP systolic 89–132; BP diastolic 54–79
[2017-11-12 05:38] LABS: MEAN CORPUSCULAR HEMOGLOBIN 32.4 pg (27.5-34.5); MEAN CORPUSCULAR HGB CONC 33.8 g/dL (33.2-36.2); MEAN CORPUSCULAR VOLUME 95.9 fL (81-97); MEAN PLATELET VOLUME 9.2 fL (7.4-10.4); PLATELET COUNT 195 x10^3/uL (130-400); RED BLOOD COUNT 3.25 x10^6/uL (4.38-5.82); RED CELL DISTRIBUTION WIDTH 15.5 % (9.4-14.8)
[2017-11-12 05:39] LABS: ALBUMIN 3.1 g/dL (3.4-5.0); ANION GAP 5 mmol/L (5-15); CALCIUM 8.4 mg/dL (8.5-10.1); CHLORIDE 107 mmol/L (98-107)
[2017-11-12 05:42] LABS: ALANINE AMINOTRANSFERASE 52 U/L (12-78); ALKALINE PHOSPHATASE 57 U/L (45-117); BILIRUBIN,TOTAL 0.7 mg/dL (0.2-1.0); CREATININE 0.93 mg/dL (0.7-1.3); TOTAL PROTEIN 6.6 g/dL (6.4-8.2)
[2017-11-12] MEDS: LEVOTHYROXINE 100 MCG TABLET PO SCH (05:54)
[2017-11-12] MEDS: METOPROLOL TARTRATE 50 MG TABLET PO SCH ×2 (05:54→16:54)
[2017-11-12] MEDS: ASPIRIN 81 MG TABLET EC PO SCH (05:54)
[2017-11-12 06:22] LABS: BASOPHILS # (AUTO) 0.05 x10^3/uL (0-0.1); BASOPHILS % (AUTO) 1 % (0-1); EOSINOPHILS # (AUTO) 0.13 x10^3/uL (0-0.4); EOSINOPHILS % (AUTO) 1 % (1-7); LYMPHOCYTES % (AUTO) 13 % (22-44); MD SCAN; MONOCYTES # (AUTO) 1.58 x10^3/uL (0.2-0.8); MONOCYTES % (AUTO) 15 % (2-9); NEUTROPHILS # (AUTO) 7.18 x10^3/uL (1.8-6.8); NEUTROPHILS % (AUTO) 70 % (42-75)
[2017-11-12] MEDS: APIXABAN 5 MG TABLET PO SCH ×2 (07:52→20:05)
[2017-11-12] MEDS: RISPERIDONE 0.5 MG TABLET PO SCH ×2 (07:52→20:05)
[2017-11-12] MEDS: TAMSULOSIN 0.4 MG CAP.ER.24H PO SCH (12:08)
[2017-11-13 00:44] VITALS: BP 109/70
[2017-11-13 05:30] VITALS: BP 114/71
[2017-11-13] MEDS: METOPROLOL TARTRATE 50 MG TABLET PO SCH (05:32)
[2017-11-13] MEDS: ASPIRIN 81 MG TABLET EC PO SCH (05:32)
[2017-11-13] MEDS: LEVOTHYROXINE 100 MCG TABLET PO SCH (05:32)
[2017-11-13] MEDS: RISPERIDONE 0.5 MG TABLET PO SCH (08:38)
[2017-11-13] MEDS: APIXABAN 5 MG TABLET PO SCH (08:38)
[2017-11-13] MEDS: TAMSULOSIN 0.4 MG CAP.ER.24H PO SCH (08:38)
[2017-11-13 08:40] VITALS: BP 107/68
[2017-11-13 12:27] VITALS: BP 102/65
[2017-11-13] MEDS ORDERED: APIX5TAB PO (13:51)
[2017-11-13] MEDS ORDERED: METO50TA82 PO (13:51)
== END 2017-11-13 15:40 | disposition home or self-care (01) | DRG 871 ==
LOC: ED 21:03 → EDIP 11-02 01:50 → CCU 11-02 03:38 → 5SO 11-07 12:43 → DCLOUNGE 11-13 15:27
PROVIDERS: ADMIT Internal Medicine; ATTEND Internal Medicine
PROC: 02HV33Z Insertion of Infusion Device into Superior Vena Cava, Percutaneous Approach (ICD-10-PCS; principal; 2017-11-02)
DX: A41.9 Sepsis, unspecified organism (principal); N17.0 Acute kidney failure with tubular necrosis; D68.59 Other primary thrombophilia; E87.1 Hypo-osmolality and hyponatremia; J96.10 Chronic respiratory failure, unspecified whether with hypoxia or hypercapnia; I95.2 Hypotension due to drugs; D64.9 Anemia, unspecified; E03.9 Hypothyroidism, unspecified; E11.22 Type 2 diabetes mellitus with diabetic chronic kidney disease; E86.1 Hypovolemia; F17.210 Nicotine dependence, cigarettes, uncomplicated; L89.102 Pressure ulcer of unspecified part of back, stage 2; H54.61 Unqualified visual loss, right eye, normal vision left eye; H54.62 Unqualified visual loss, left eye, normal vision right eye; I12.9 Hypertensive chronic kidney disease with stage 1 through stage 4 chronic kidney disease, or unspecified chronic kidney disease; I25.2 Old myocardial infarction; I48.0 Paroxysmal atrial fibrillation; J43.9 Emphysema, unspecified; N18.2 Chronic kidney disease, stage 2 (mild); T50.905A Adverse effect of unspecified drugs, medicaments and biological substances, initial encounter; F41.9 Anxiety disorder, unspecified; D72.825 Bandemia; Y92.89 Other specified places as the place of occurrence of the external cause; M10.9 Gout, unspecified; Z79.82 Long term (current) use of aspirin; Z86.73 Personal history of transient ischemic attack (TIA), and cerebral infarction without residual deficits; Z99.81 Dependence on supplemental oxygen
CPT/HCPCS: 36415; 36556; 71045; 76770; 80048; 80053; 81003; 82040; 82436; 82533; 82607; 82728; 83540; 83550; 83605; 83735; 84100; 84133; 84145; 84300; 84443; 84484; 85025; 85045; 85520; 85610; 85730; 87040; 87081; 93005; 93306; 96361; 96365; 96366; 96375; G0378; J0696; J1644; J0282; J1610; J3475; J7030; J7040; J7050

== ENCOUNTER 2018-05-28 21:34 | Inpatient (IN) | payer MEDICARE, MEDICAID ==
[~2018-05-28] VITALS: Ht 170.2 cm; Wt 70.3 kg
[~2018-05-28 21:34] MED LIST changes: -AMLO10TA6 PO; +AMLO10TA8 PO; +APIX5TAB PO; -ASPI-621 PO; +ASPI81TA45 PO; -CLON0.1T PO; +CLON0.1T22 PO; +CLOP75TA52 PO; +LOSA25TA25 PO; +METO50TA82 PO; -TRAZ-136 PO; +TRAZ50TA66 PO
--- NOTE | 2018-05-28 21:35 | NUR ---
BIB [facility] FROM HOME W/ CO INCREASING ANXIETY X THREE DAYS. PER PT, UNABLE TO FILL RX'S FOR HTN AND ANXIETY/DEPRESSION D/T NO TRANSPORT TO PHARMACY. RX: METOPROLOL, RISPERIDONE, AND LORAEPAM. PT ARRIVES A&OX4, RESPIRATIONS EVEN/UNLABORED. PT REPORTS "I CAN'T BREATHE!". SPO2 >90% ON BASELINE O2 ON 3L. RR WNL. BLE REDNESS/EDEMA NOTED, PT REPORTS HX OF CHRONIC CELLULITIS AND TAKES CLINDAMYCIN. UNKNOWN COMPLIANCE. BP/SPO2/ECG MONITORING IN PLACE. SINUS TACH ON MONITOR.
[2018-05-28 22:13] LABS: BASOPHILS # (AUTO) 0.02 x10^3/uL (0-0.1); BASOPHILS % (AUTO) 0 % (0-1); EOSINOPHILS # (AUTO) 0.02 x10^3/uL (0-0.4); EOSINOPHILS % (AUTO) 0 % (1-7); LYMPHOCYTES # (AUTO) 1.53 x10^3/uL (1-3.4); LYMPHOCYTES % (AUTO) 18 % (22-44); MD NO; MEAN CORPUSCULAR HEMOGLOBIN 32.9 pg (27.5-34.5); MEAN CORPUSCULAR HGB CONC 33.6 g/dL (33.2-36.2); MEAN CORPUSCULAR VOLUME 97.7 fL (81-97); MEAN PLATELET VOLUME 8.5 fL (7.4-10.4); MONOCYTES % (AUTO) 7 % (2-9); NEUTROPHILS # (AUTO) 6.44 x10^3/uL (1.8-6.8); NEUTROPHILS % (AUTO) 75 % (42-75); PLATELET COUNT 169 x10^3/uL (130-400); RED BLOOD COUNT 4.33 x10^6/uL (4.38-5.82); RED CELL DISTRIBUTION WIDTH 16.1 % (9.4-14.8)
[2018-05-28 22:17] LABS: ALANINE AMINOTRANSFERASE 68 U/L (12-78); ALBUMIN 4.3 g/dL (3.4-5.0); ANION GAP 18 mmol/L (5-15); CALCIUM 8.5 mg/dL (8.5-10.1); CHLORIDE 97 mmol/L (98-107); CREATININE 0.78 mg/dL (0.7-1.3)
[2018-05-28 22:21] LABS: ALKALINE PHOSPHATASE 90 U/L (45-117); FREE T4 (FREE THYROXINE) 0.75 ng/dL (0.76-1.46); TOTAL PROTEIN 7.6 g/dL (6.4-8.2); TROPONIN I 0.071 ng/mL (0.000-0.045)
[2018-05-28] MEDS ORDERED: LORazepam 2 MG/ML, 1ML ONE (22:27)
[2018-05-28] MEDS ORDERED: LORazepam 2 MG/ML, 1ML IVPush ONE (22:30)
--- NOTE | 2018-05-28 22:38 | NUR ---
IV ESTABLISHED, PT MEDICATED PER EMAR FOR ANXIETY. ERP AT BEDSIDE TO DISCUSS POC (ADMIT) PT DEMONSTRATES UNDERSTANDING.
[2018-05-28] MEDS ORDERED: CLINDAMYCIN (22:42)
--- NOTE | 2018-05-28 23:04 | NUR ---
PT REPORTS IMPROVEMENT IN S/S AFTER MEDICATIONS. APPEARS MORE CALM
[2018-05-28] MEDS ORDERED: ASPIRIN 81 MG TABLET CHEW ONE ×2 (23:10→23:19)
--- NOTE | 2018-05-28 23:21 | NUR ---
PT RESTING COMFORTABLY, EASILY ARROUSABLE TO VOICE. PT MEDICATED W/ ASA. NO REPEAT EKG PER ERP
[2018-05-28] MEDS ORDERED: ASPIRIN 325 MG TABLET PO ONE (23:30)
--- NOTE | 2018-05-28 23:55 | NUR ---
REPORT TO DRU RENDON ON TELE
[2018-05-29] MEDS ORDERED: ONDANSETRON ODT 4 MG PO PRN (00:30)
[2018-05-29] MEDS ORDERED: hydrALAzine 20 MG/ML, 1ML IVPush PRN (00:30)
[2018-05-29] MEDS ORDERED: LORazepam 1MG TABLET PO PRN ×2 (00:30→01:30)
[2018-05-29] MEDS ORDERED: POLYETHYLENE GLYCOL 17 GM PACKET PO PRN (00:30)
[2018-05-29] MEDS ORDERED: BISACODYL 10 MG SUPP PR PRN (00:30)
[2018-05-29] MEDS ORDERED: ACETAMINOPHEN 325 MG TABLET PO PRN ×2 (00:30→11:00)
[2018-05-29 00:45] VITALS: BP 175/98
[2018-05-29 00:58] VITALS: BP 170/98
[2018-05-29 01:30] VITALS: BP 166/97
[2018-05-29] MEDS: LOSARTAN 50MG TABLET PO SCH ×3 (02:09→20:39)
[2018-05-29] MEDS: AMLODIPINE 5 MG TABLET PO SCH ×3 (02:09→20:39)
[2018-05-29 05:17] LABS: BASOPHILS # (AUTO) 0.04 x10^3/uL (0-0.1); BASOPHILS % (AUTO) 1 % (0-1); EOSINOPHILS # (AUTO) 0.03 x10^3/uL (0-0.4); EOSINOPHILS % (AUTO) 0 % (1-7); LYMPHOCYTES # (AUTO) 1.05 x10^3/uL (1-3.4); LYMPHOCYTES % (AUTO) 12 % (22-44); MD NO; MEAN CORPUSCULAR HGB CONC 34.2 g/dL (33.2-36.2); MEAN CORPUSCULAR VOLUME 96.3 fL (81-97); MEAN PLATELET VOLUME 8.8 fL (7.4-10.4); MONOCYTES # (AUTO) 0.81 x10^3/uL (0.2-0.8); MONOCYTES % (AUTO) 9 % (2-9); NEUTROPHILS % (AUTO) 78 % (42-75); PLATELET COUNT 150 x10^3/uL (130-400); RED BLOOD COUNT 4.17 x10^6/uL (4.38-5.82); RED CELL DISTRIBUTION WIDTH 16.3 % (9.4-14.8)
[2018-05-29 05:23] LABS: ALANINE AMINOTRANSFERASE 60 U/L (12-78); ANION GAP 13 mmol/L (5-15); CALCIUM 8.5 mg/dL (8.5-10.1); CHLORIDE 96 mmol/L (98-107)
[2018-05-29 05:25] LABS: ALKALINE PHOSPHATASE 88 U/L (45-117); BILIRUBIN,TOTAL 1.3 mg/dL (0.2-1.0); TOTAL PROTEIN 7.4 g/dL (6.4-8.2)
[2018-05-29] MEDS: LEVOTHYROXINE 100 MCG TABLET PO SCH (05:55)
[2018-05-29] MEDS: METOPROLOL TARTRATE 50 MG TABLET PO SCH ×2 (05:56→18:45)
[2018-05-29] MEDS ORDERED: LEVOTHYROXINE 100 MCG TABLET PO SCH (06:00)
[2018-05-29] MEDS ORDERED: METOPROLOL TARTRATE 50 MG TABLET PO SCH (06:00)
[2018-05-29 07:40] VITALS: BP 139/83
[2018-05-29] MEDS: BUDESONIDE 0.5 MG/2 ML INHA INH SCH ×2 (07:45→20:58)
[2018-05-29] MEDS: ALBUTEROL/IPRATROPIUM 2.5MG/0.5MG, 3 ML HHN SCH ×4 (07:45→20:00)
[2018-05-29] MEDS ORDERED: REGADENOSON 0.4 MG/5 ML SYRINGE ONE (08:53)
[2018-05-29] MEDS ORDERED: APIXABAN 5 MG TABLET PO SCH ×2 (09:00)
[2018-05-29] MEDS ORDERED: SODIUM CHLORIDE FLUSH 10ML SYR IVF SCH (09:00)
[2018-05-29] MEDS ORDERED: SENNA/DOCUSATE TABLET PO SCH (09:00)
[2018-05-29] MEDS ORDERED: RISPERIDONE 0.5 MG TABLET PO SCH (09:00)
[2018-05-29] MEDS ORDERED: ONDANSETRON 2MG/ML, 2ML ONE (10:26)
[2018-05-29] MEDS ORDERED: ONDANSETRON 2MG/ML, 2ML IVPush PRN (10:30)
[2018-05-29] MEDS ORDERED: NITROGLYCERIN 0.4 MG/SPRAY SL PRN (11:00)
[2018-05-29] MEDS ORDERED: KETOROLAC 30 MG/1 ML IV PRN (11:00)
[2018-05-29] MEDS ORDERED: TRAZODONE 50MG TABLET PO PRN (11:00)
[2018-05-29] MEDS ORDERED: RISPERIDONE 1 MG TABLET ONE ×2 (11:07→20:27)
[2018-05-29] MEDS: HYDROCHLOROTHIAZIDE 25 MG TABLET PO SCH (11:10)
[2018-05-29] MEDS: RISPERIDONE 0.5 MG TABLET PO SCH ×2 (11:10→20:40)
[2018-05-29] MEDS ORDERED: OMNIPAQUE 350 MG/ML, 100ML BOTTLE ONE (12:29)
[2018-05-29 13:57] VITALS: BP 122/70
[2018-05-29] MEDS: CEFTRIAXONE PMX 1GM/50ML 50 ML IV SCH (14:54)
[2018-05-29 19:11] VITALS: BP 124/73
[2018-05-29] MEDS: APIXABAN 2.5 MG TABLET PO SCH (20:39)
[2018-05-30 00:51] VITALS: BP 108/70
[2018-05-30] MEDS: CEFTRIAXONE PMX 1GM/50ML 50 ML IV SCH ×2 (01:34→13:39)
[2018-05-30] MEDS: METOPROLOL TARTRATE 50 MG TABLET PO SCH ×2 (05:32→17:19)
[2018-05-30] MEDS: LEVOTHYROXINE 100 MCG TABLET PO SCH (05:32)
[2018-05-30] MEDS: BUDESONIDE 0.5 MG/2 ML INHA INH SCH ×2 (07:25→20:15)
[2018-05-30] MEDS: ALBUTEROL/IPRATROPIUM 2.5MG/0.5MG, 3 ML HHN SCH ×4 (07:25→20:15)
[2018-05-30 08:00] VITALS: BP 102/64
[2018-05-30] MEDS ORDERED: RISPERIDONE 1 MG TABLET ONE ×2 (08:52→19:28)
[2018-05-30] MEDS: HYDROCHLOROTHIAZIDE 25 MG TABLET PO SCH (08:55)
[2018-05-30] MEDS: LOSARTAN 50MG TABLET PO SCH ×2 (08:55→20:07)
[2018-05-30] MEDS: AMLODIPINE 5 MG TABLET PO SCH ×2 (08:55→20:07)
[2018-05-30] MEDS: APIXABAN 2.5 MG TABLET PO SCH ×2 (08:55→19:40)
[2018-05-30] MEDS: RISPERIDONE 0.5 MG TABLET PO SCH ×2 (08:56→19:39)
[2018-05-30 13:17] VITALS: BP 97/64
[2018-05-30 19:30] VITALS: BP 91/48
[2018-05-31 01:29] VITALS: BP 105/66
[2018-05-31] MEDS: CEFTRIAXONE PMX 1GM/50ML 50 ML IV SCH ×2 (02:33→14:43)
[2018-05-31] MEDS: METOPROLOL TARTRATE 50 MG TABLET PO SCH (05:25)
[2018-05-31] MEDS: LEVOTHYROXINE 100 MCG TABLET PO SCH (05:25)
[2018-05-31 05:28] VITALS: BP 125/80
[2018-05-31 08:00] VITALS: BP 99/64
[2018-05-31] MEDS: BUDESONIDE 0.5 MG/2 ML INHA INH SCH (08:00)
[2018-05-31] MEDS: ALBUTEROL/IPRATROPIUM 2.5MG/0.5MG, 3 ML HHN SCH ×3 (08:00→15:15)
[2018-05-31] MEDS ORDERED: RISPERIDONE 1 MG TABLET ONE (09:23)
[2018-05-31 09:27] VITALS: BP 99/62
[2018-05-31] MEDS: HYDROCHLOROTHIAZIDE 25 MG TABLET PO SCH (09:30)
[2018-05-31] MEDS: APIXABAN 2.5 MG TABLET PO SCH (09:31)
[2018-05-31] MEDS: RISPERIDONE 0.5 MG TABLET PO SCH (09:32)
[2018-05-31] MEDS: AMLODIPINE 5 MG TABLET PO SCH (09:33)
[2018-05-31 10:56] VITALS: BP 102/66
[2018-05-31] MEDS: LOSARTAN 50MG TABLET PO SCH (10:57)
[2018-05-31 13:54] VITALS: BP_SYST 110; BP_SYST 111; BP_DIAS 63; BP_DIAS 72
== END 2018-05-31 16:27 | disposition home health service (06) | DRG 871 ==
LOC: ED 22:04 → EDIP 23:33 → 5SO 05-29 00:36 → DCLOUNGE 05-31 16:15
PROVIDERS: ADMIT Internal Medicine; ATTEND Internal Medicine
DX: A41.9 Sepsis, unspecified organism (principal); J96.21 Acute and chronic respiratory failure with hypoxia; J98.11 Atelectasis; J43.9 Emphysema, unspecified; F10.20 Alcohol dependence, uncomplicated; M47.9 Spondylosis, unspecified; Z87.01 Personal history of pneumonia (recurrent); I10 Essential (primary) hypertension; F41.1 Generalized anxiety disorder; I65.23 Occlusion and stenosis of bilateral carotid arteries; H54.40 Blindness, one eye, unspecified eye; E03.9 Hypothyroidism, unspecified; E11.9 Type 2 diabetes mellitus without complications; Z86.73 Personal history of transient ischemic attack (TIA), and cerebral infarction without residual deficits; F40.240 Claustrophobia; I25.2 Old myocardial infarction; I27.81 Cor pulmonale (chronic); Z86.718 Personal history of other venous thrombosis and embolism; Z87.891 Personal history of nicotine dependence; Z99.81 Dependence on supplemental oxygen
CPT/HCPCS: 36415; 71045; 71275; 78452; 80053; 84439; 84443; 84484; 85025; 93005; 93017; 93306; 93880; 94640; 99285; G0378; J0696; J2405; J2785; J7620; J7626; Q9967; A9502; C9898; J2060